=== PATIENT | male | born 1995 | race Two or more races ===

== ENCOUNTER 2021-12-02 23:07 | Emergency (ER) | payer SELFPAY ==
[~2021-12-02] VITALS: Ht 162.6 cm; Wt 80.7 kg
--- NOTE | 2021-12-02 23:27 | NUR ---
PT BIBRA 77 C/O R THIGH PAIN 12/25. W/C BOUND. PT A/OX4. TOLERATING R/A WELL WITH NO SOB.
--- NOTE | 2021-12-03 00:04 | NUR ---
PT BEING TRANSPORTED TO CT VIA [facility]
--- NOTE | 2021-12-03 00:14 | NUR ---
PT RETURNED FROM CT VIA [facility]
--- NOTE | 2021-12-03 01:28 | NUR ---
Patient discharged to home in stable condition. Written and verbal after care instructions given. Patient verbalizes understanding of instruction.
[2021-12-03 01:30] VITALS: BP 133/63
== END 2021-12-03 01:30 | disposition home or self-care (01) ==
LOC: ER 23:09
DX: M79.89 Other specified soft tissue disorders (principal); Z88.8 Allergy status to other drugs, medicaments and biological substances; Z60.2 Problems related to living alone
CPT/HCPCS: 73700-TC